=== PATIENT | male | born 1960 | race Caucasian/White ===

== ENCOUNTER 2018-08-25 09:59 | Outpatient (CLI) | payer BC, OTHER ==
--- NOTE | 2018-08-25 12:13 | CT ---
CT CHEST WITH IV CONTRAST: CT ABDOMEN AND PELVIS WITH IV CONTRAST: 08/25/2018 HISTORY: Colon mass. Rectal pain and constipation. COMPARISON: None available. FINDINGS: THORAX: There are emphysematous changes within the lungs bilaterally, greater in the upper lobes. T here is a tiny pleural-based nodular density at the posterolateral left lung base, measuring 4 mm. N o pulmonary nodule, mass, or pleural effusion is seen. There is minimal dependent atelectasis. There is a small, approximately 7 mm nodular density seen at the right aspect of the distal trachea, just above the level of the good. Prominent vascular calcifications are seen in the coronary arteries with minimal eccentric atheroscle rotic plaque in the descending thoracic aorta. The thoracic aorta is normal in caliber. There is no evidence of lymphadenopathy. ABDOMEN AND PELVIS: There is a lobulated, hypodense mass involving the cecum and proximal ascending colon. This mass involves the region of the ileocecal valve, and there is also eccentric thickening and involvement of the terminal ileum. There is no resultant small bowel obstruction. The greatest dimensions of the mass are 7.9 cm craniocaudal x 5.8 cm AP x 3.6 cm transverse. This mass likely ext ends beyond the lumen of the colon. A few adjacent tiny lymph nodes are seen in this region. There are a few lymph nodes seen anteriorly at the right aspect of the pelvis, measuring 1 cm and 1.1 cm in short axis dimension, respectively. There is also an eccentric mass seen at the right aspect of the rectum, with mass extending into the right perirectal fat and abutting the pelvic wall laterally, on the right. There are mild adjacent p erirectal inflammatory changes. A few small, nonenlarged lymph nodes are seen, although there is a l arger perirectal lymph node measuring approximately 1.1 cm in short axis dimension. There is colonic diverticulosis. The remainder of the colon prasad appear thickened, involving the tr ansverse and descending, as well as sigmoid colon, but this may be attributable to the incomplete dis tention of the colon. There are minimal presacral inflammatory changes seen posterior to the level of the rectal mass. The rectal mass grossly measures 4.8 cm craniocaudal x 3.9 cm AP x 3 cm transverse. There are several hypodense lesions seen within the left hepatic lobe, with at least six hypodense le sions seen, the largest in the posterior-inferior aspect of the lateral portion, medial segment, left hepatic lobe, measuring 2.7 cm. There is also a hypodense lesion near the region of the anterior se gment of the right hepatic lobe, measuring 1.8 cm in short axis dimension. These hypodense lesions a re worrisome for metastatic disease. A 4.4 cm fluid attenuation cystic lesion is seen in the mid portion, superior pole, right kidney, com patible with a cyst. The spleen, pancreas, bilateral adrenal glands, left kidney, and urinary bladder demonstrate a normal CT appearance. Atherosclerotic vascular calcifications and irregular atherosclerotic plaque is seen in the abdominal aorta and involving the iliac arteries. There is a sclerotic density seen at the posterior and superior aspects of the left acetabulum, likel y related to a small bone island. Similar findings are seen at anterior right acetabulum. No lytic osseous lesions are seen. IMPRESSION: 1. Two separate lobulated colonic masses, one seen involving the cecum and ascending colon, as well as involving the region of the ileocecal valve and the terminal ileum. This mass appears to extend b eyond the confines of the rectal wall. A second mass is seen within the right lateral aspect of the rectum, and this mass extends into the right perirectal fat and abuts the body wall. No well defined fat plane is seen laterally, on the right. 2. Mildly enlarged lymph nodes at the right anterolateral aspect of the pelvis, the largest measurin g 1.1 cm, with a few tiny perirectal lymph nodes seen and a larger lymph node seen in a presacral loc ation, measuring approximately 1.1 cm. 3. Several hypodense metastatic lesions within the liver. 4. Colonic diverticulosis. There is generalized thickening of the prasad of the colon, but this may be related to incomplete distention, as opposed to colitis. 5. Tiny, eccentric nodule, right lateral aspect of the trachea. Bronchoscopy is suggested for furth er evaluation. 6. Mild presacral inflammatory changes noted. 7. Right renal cyst. 8. Chronic obstructive pulmonary disease with subcentimeter, [id number], 4 mm, pleura l-based, nodular density, left lower lobe. CODE T POS: [facility]
[2018-08-25] MEDS ORDERED: ISOVUE-370 76%-LOCM 1 ML ONE (14:06)
== END 2018-08-25 10:00 | disposition home or self-care (01) ==
LOC: BICCT 09:59
PROVIDERS: ATTEND Internal Medicine Gastroenterology
DX: K63.89 Other specified diseases of intestine (principal); R59.0 Localized enlarged lymph nodes; K76.89 Other specified diseases of liver; K57.30 Diverticulosis of large intestine without perforation or abscess without bleeding; R91.1 Solitary pulmonary nodule; N28.1 Cyst of kidney, acquired; J44.9 Chronic obstructive pulmonary disease, unspecified; K62.89 Other specified diseases of anus and rectum; R91.8 Other nonspecific abnormal finding of lung field
CPT/HCPCS: 71260; 74177

== ENCOUNTER 2018-09-02 12:33 | Outpatient (CLI) | payer BC, OTHER ==
--- NOTE | 2018-09-03 09:12 | PET ---
PET CT: HISTORY: 57-year-old male with recently diagnosed colon cancer. Exam requested for initial staging. TECHNIQUE: PET scanning with CT attenuation correction was performed from the base of the brain through the prox imal thighs following the intravenous administration of 9.2 mCi [id number] in the right antecubital duy a. Imaging was performed after an uptake interval of 47 minutes. CORRELATION: CT chest, abdomen, and pelvis dated 08/25/18. FINDINGS: No montrell hypermetabolism is seen in the neck, chest, axilla, or abdomen. No hypermetabolic pulmonary nodules, adrenal, or skeletal lesions are seen. There are multiple hypermetabolic lesions in the liver with a maximum SUV of 8.6 in the right lobe of the liver (close to the dome) and 9.6 in the left lobe of the liver (posterior inferior aspect of th e lateral portion, medial segment, left hepatic lobe, measuring 2.7 cm). There is a hypermetabolic cecal mass with a SUV of 5.2. There is a hypermetabolic right rectal mass w ith a SUV of 10.7. This mass has a right perirectal extension with a SUV of 8.4. Hypermetabolic salbador cral lymph node has a SUV of 4.5. There is a small right perirectal lymph node with a SUV of 2.3. There is physiologic activity in the GI and tracts. A photopenic area in the right kidney correspo nds to a cyst. CT scan used for attenuation correction demonstrates no evidence of pleural effusions or ascites. IMPRESSION: 1. Two separate hypermetabolic colonic masses consistent with malignancy. 2. Metastatic disease involving the liver, presacral lymph node, and right perirectal lymph node. POS: [facility]
== END 2018-09-02 12:34 | disposition home or self-care (01) ==
LOC: PET 12:33
PROVIDERS: ATTEND Internal Medicine Hematology & Oncology
DX: C18.9 Malignant neoplasm of colon, unspecified (principal); C78.7 Secondary malignant neoplasm of liver and intrahepatic bile duct; C77.5 Secondary and unspecified malignant neoplasm of intrapelvic lymph nodes
CPT/HCPCS: 78815; A9552

== ENCOUNTER 2018-09-08 13:11 | Day surgery (SDC) | payer BC, OTHER ==
[2018-09-07 10:21] VITALS: BMI 19.5
[2018-09-08 13:56] LABS: Hemoglobin 16.2 g/dL (14.0-18.0); Mean Corpuscular HGB CONC 33.2 g/dL (32.0-36.0); Mean Corpuscular Hemoglobin 31.9 pg (27.0-31.0); Mean Platelet Volume 8.2 fL (7.4-10.4); Platelet Count 354 thou/uL (130-400); RBC Distribution Width 12.1 % (11.5-14.5); Red Blood Cell (RBC) Count 5.08 mill/uL (4.70-6.10); White Blood Cell (WBC) Count 11.6 thou/uL (4.8-10.8)
[2018-09-08 14:18] LABS: Anion Gap 15 mmol/L (10-20); BUN (Urea Nitrogen) 13 mg/dL (8.4-25.7); Calc. Creatinine Clearance 93 mL/min (70-130); Calcium 9.5 mg/dL (7.8-10.44); Carbon Dioxide 20 mmol/L (22-29); Chloride 107 mmol/L (98-107); Estimated GFR-MDRD Greater than 90; Glucose 97 mg/dL (70-105); Potassium 3.8 mmol/L (3.5-5.1); Sodium 138 mmol/L (136-145)
[2018-09-08] MEDS ORDERED: Midazolam HCl 2 mg/2 ml Vial ONE ×2 (14:42→16:16)
[2018-09-08] MEDS ORDERED: Ondansetron HCl/PF 4 MG/2 ML Vial ONE ×2 (14:43→17:35)
[2018-09-08] MEDS ORDERED: Fentanyl 100 MCG/2 ML VIAL ONE (16:16)
[2018-09-08] MEDS ORDERED: Bupivacaine/Epinephrine 0.25% 30 ML VIAL ONE (16:23)
[2018-09-08] MEDS ORDERED: Lidocaine 2% PF Inj 2 ML VIAL ONE ×2 (16:23→16:24)
[2018-09-08] MEDS ORDERED: CEFAZOLIN/Water 2 GM/20 ML SYRINGE ONE (16:33)
[2018-09-08] MEDS ORDERED: Dexamethasone 20 MG/5 ML VIAL ONE (17:35)
[2018-09-08] MEDS ORDERED: Lidocaine 1% PF 5 ML VIAL ONE (17:35)
[2018-09-08] MEDS ORDERED: Metoclopramide HCl 10 MG/2 ML VIAL ONE (17:35)
[2018-09-08] MEDS ORDERED: PROPOFOL 200 MG/20 ML VIAL ONE (17:35)
--- NOTE | 2018-09-08 19:47 | RAD ---
PORTABLE CHEST ONE VIEW: 09/08/18 HISTORY: Mediport placement. Colon cancer. FINDINGS/IMPRESSION: The heart size is normal. The aorta is tortuous. The lungs are well expanded without lobar consolidat ion, pneumothoraces or pleural effusions. There is a left internal jugular Port-A-Cath with tip in th e projection of the SVC. POS: [facility]
--- NOTE | 2018-09-08 20:58 | OP ---
DATE OF PROCEDURE: 09/08/2018 PREOPERATIVE DIAGNOSIS: Rectal cancer. POSTOPERATIVE DIAGNOSIS: Rectal cancer. PROCEDURE: Tunneled central line subcutaneous port (MediPort, CT injectable). SURGEON: Tenzin Patel M.D. ANESTHESIA: TIVA, local. COMPLICATIONS: None. SPECIMEN: None. FINDINGS: Tip of catheter is at the atriocaval junction. TECHNIQUE: The patient was taken to the operating room and placed supine on the table. After sedati on was obtained, bilateral neck and chest were prepped and draped in a sterile fashion. Local anesth etic infiltrated over the internal jugular vein on the left and introducer wire was placed through a Seldinger needle into the superior vena cava under fluoroscopic guidance. A small ayde was made ____ _ a separate 3 cm incision was made in the left upper chest and a subcutaneous pocket made at the low er incision. Tubing for the MediPort tunnel from the inferior to superior incision and Jimmy bright th was placed over the wire into the superior vena cava under fluoroscopic guidance. Dilator and wir e removed. The EndoCatch was inserted into the sheath and the sheath was peeled away. The tip of th e catheter was at atriocaval junction. MediPort tubing was cut to fit the MediPort at the lower inci fely, connected to the MediPort. The MediPort sewn to the chest wall in the subcutaneous pocket usin g Prolene. MediPort flushes and draws blood without difficulties, it was flushed with a heparin flus h. The wounds were irrigated and closed using 3-0 Vicryl, 4-0 Monocryl, and Dermabond. The patient was transferred to recovery in stable condition. All sponge counts, needle counts, lap counts were c orrect.
== END 2018-09-08 18:27 | disposition home or self-care (01) ==
LOC: SDC 13:11
PROVIDERS: ATTEND Surgery
PROC: 02HV33Z Insertion of Infusion Device into Superior Vena Cava, Percutaneous Approach (ICD-10-PCS; principal; 2018-09-08)
DX: C20 Malignant neoplasm of rectum (principal); N13.9 Obstructive and reflux uropathy, unspecified; E78.00 Pure hypercholesterolemia, unspecified; C78.7 Secondary malignant neoplasm of liver and intrahepatic bile duct; F17.200 Nicotine dependence, unspecified, uncomplicated; Z79.82 Long term (current) use of aspirin; Z79.899 Other long term (current) drug therapy; Z95.5 Presence of coronary angioplasty implant and graft
CPT/HCPCS: 36415; 71045; 80048; 85027; 93005; 93010; J1100; J1642; J2001; J2250; J2405; J2704; J2765; J3010

== ENCOUNTER 2018-11-05 07:56 | Outpatient (CLI) | payer BC, OTHER ==
--- NOTE | 2018-11-05 10:46 | CT ---
CT OF THE ABDOMEN AND PELVIS: DATE: 11/05/2018. COMPARISON: PET CT 09/02/2018; CT chest, abdomen, and pelvis 08/25/2018. HISTORY: Colon cancer. TECHNIQUE: Axial CT imaging obtained at 5 mm intervals from lung bases through pubic symphysis with intravenous and oral contrast. Coronal reformatted imaging obtained. FINDINGS: The imaged lung bases demonstrate tiny nodules within the right lower lobe, including a nodule on marlys ge 10 measuring 4 mm and a nodule on image 14 measuring 4 mm. These nodules are not definitely seen on prior imaging and thus, may represent new metastatic disease. However, there small size limits de tailed assessment. There is no free intraperitoneal air. There are multiple hypodense rim enhancing lesions within the left and right lobes of the liver, cons istent with hepatic metastatic disease. Metastatic lesions within the liver have increased in size a nd number when compared to the 08/25/2018 CT. Limited comparison on recent PET CT also demonstrates l esions have increased in number and size. There are at least 11-123 lesions within the left lobe of the liver. There is a lesion within the liver just anterior and medial to the gallbladder. On today 's examination, this lesion measures 4.4 x 3.1 cm. It measured approximately 2.7 x 2.1 cm on the 08/01 exam and measured approximately 3.2 x 2.4 cm on the recent PET scan. There is a lesion within the right lobe near the dome measuring 3.7 x 3.3 cm, increased from PET CT at which time it measured approximately 2.5 x 1.8 cm. This lesion measured approximately 1.8 x 1.7 cm on the 08/25/2018 exam. There are at least 8-10 lesions within the right lobe of the liver, many of which are new when sandra red to 08/25/2018 as well as recent PET CT. The pancreas, spleen, adrenal glands, gallbladder, and kidneys appear stable. There is a cyst within the right kidney measuring up to 3.7 cm. There is an eccentric mass associated with the distal colon/rectum to the right of midline. This mas s extends into the perirectal fat and is difficult to accurately measure. Estimated measurement of t his colon mass lesion is 3.0 x 2.7 x 3.3 cm, probably decreased in size when compared to the 9/26/201 8 exam at which time it measured in the 3.9 x 3.0 x 4.8 cm range. There is a mass in the presacral f at superior to this lesion located just to the right of midline measuring 1.8 cm in transverse dimens ion, enlarged from 1.1 cm on the 08/25/2018 examination and grossly unchanged when compared to the rec ent PET CT. Additional smaller presacral mass just superior to the above-described colonic mass is s een on image 82 and measures 9 mm, increased from 6 mm on 08/25/2018 and stable when compared to recen t PET CT. No evidence for bowel obstruction. There is an irregular focal area of mass-like wall thickening of the proximal ascending colon just di stal to the ileocecal valve, best seen on coronal image 24 measuring at least 4.2 x 2.4 x 2.7 cm. An ill-defined mass is seen in this region on the PET scan measuring up to approximately 3.4 cm. This mass has decreased in size when compared to the 08/25/2018 exam at which time it measured at least 5.8 x 3.7 cm. The vascular structures of the abdomen and pelvis appear patent. There is multifocal partially calci fied atherosclerotic plaque within the abdominal aorta extending into the arterial structures of the pelvis. No inguinal lymphadenopathy is noted on either side. No retroperitoneal lymphadenopathy is seen. No discrete lytic or blastic bone lesion is evident on this exam. IMPRESSION: 1. Two colonic mass lesions are noted, one associated with the right aspect of the rectum and one as sociated with the medial aspect of the proximal ascending colon, consistent with malignancy. Both of these lesions have decreased in size when compared to the 08/25/2018 examination. 2. Evidence of hepatic metastatic disease, progressed since the 09/02/[address] and the 08/25/2018 C T examination. 3. Evidence of metastatic disease in the presacral fat and perirectal fat as detailed above. 4. Two tiny pulmonary nodules are noted in the right lower lobe. These are not discretely visualize d on the prior examination and thus may represent early new pulmonary metastatic disease. CODE T
[2018-11-05] MEDS ORDERED: ISOVUE-370 76%-LOCM 1 ML ONE (13:28)
== END 2018-11-05 07:57 | disposition home or self-care (01) ==
LOC: BICCT 07:56
PROVIDERS: ATTEND Internal Medicine Hematology & Oncology
DX: C18.9 Malignant neoplasm of colon, unspecified (principal); R91.8 Other nonspecific abnormal finding of lung field
CPT/HCPCS: 74177

== ENCOUNTER 2018-11-18 08:23 | Day surgery (SDC) | payer BC, OTHER ==
[2018-11-17 08:19] VITALS: BMI 19.3
[2018-11-18 08:55] LABS: INR-International Normal Ratio 0.9; PTT 34.3 SEC (22.9-36.1); Prothrombin Time 12.4 SEC (12.0-14.7)
[2018-11-18 10:59] VITALS: BP 123/82; TEMP 98
--- NOTE | 2018-11-18 13:10 | ULT ---
ULTRASOUND GUIDED LIVER BIOPSY: HISTORY: Liver mass. COMPARISON: CT abdomen and pelvis from 11/05/2018. FINDINGS: The patient was brought to the ultrasound suite. All questions were answered. The patient's abdomen was prepped and draped in the normal sterile fashion. Informed consent was obt ained. A time out was performed. Versed 25 mg was administered intravenously by the supervising nurse. Lidocaine 5 mL was instilled into the superficial and deep soft tissues. A small dermatotomy was mad e. Using an 18 gauge BioPince needle, a total of two 11 mm cores were obtained to the mass, through the left lobe of the liver. The patient tolerated the procedure well, without complications. IMPRESSION: Technically successful ultrasound-guided liver mass biopsy. TOTAL SEDATION TIME: 30 minutes. POS: [facility]
== END 2018-11-18 12:10 | disposition home or self-care (01) ==
LOC: CT 08:23
PROVIDERS: ATTEND Internal Medicine Hematology & Oncology
PROC: 0FB23ZX Excision of Left Lobe Liver, Percutaneous Approach, Diagnostic (ICD-10-PCS; principal; 2018-11-18)
DX: C78.7 Secondary malignant neoplasm of liver and intrahepatic bile duct (principal); C18.8 Malignant neoplasm of overlapping sites of colon; I25.10 Atherosclerotic heart disease of native coronary artery without angina pectoris; E78.00 Pure hypercholesterolemia, unspecified; F17.210 Nicotine dependence, cigarettes, uncomplicated; Z79.899 Other long term (current) drug therapy; Z95.5 Presence of coronary angioplasty implant and graft
CPT/HCPCS: 36415; 47000; 76942; 85610; 85730

== ENCOUNTER 2018-12-20 00:58 | Inpatient (IN) | payer BC, OTHER ==
[2018-12-20] MEDS ORDERED: Lorazepam 2 MG/ML VIAL ONE (01:14)
[2018-12-20 01:25] LABS: #Basophils 0.1 thou/uL (0.0-0.2); #Eosinphils 0.2 thou/uL (0.0-0.7); #Lymphocytes 1.4 thou/uL (1.20-3.40); #Monocytes 1.7 thou/uL (0.11-0.59); #Neutrophils 10.7 thou/uL (1.40-6.50); %Basophils 0.5 % (0.0-1.0); %Eosinophils 1.6 % (0.0-10.0); %Lymphocytes 10.1 % (21.0-51.0); %Neutrophils 75.8 % (42.0-75.0); Hemoglobin 13.7 g/dL (14.0-18.0); Mean Corpuscular HGB CONC 33.5 g/dL (32.0-36.0); Mean Corpuscular Hemoglobin 33.5 pg (27.0-31.0); Mean Platelet Volume 7.1 fL (7.4-10.4); Platelet Count 510 thou/uL (130-400); RBC Distribution Width 16.6 % (11.5-14.5); Red Blood Cell (RBC) Count 4.08 mill/uL (4.70-6.10); White Blood Cell (WBC) Count 14.1 thou/uL (4.8-10.8)
[2018-12-20 01:52] LABS: ALT (SGPT) 10 U/L (8-55); AST (SGOT) 23 U/L (5-34); Alkaline Phosphatase 224 U/L (40-150); Anion Gap 23 mmol/L (10-20); BUN (Urea Nitrogen) 13 mg/dL (8.4-25.7); Bilirubin, Total 0.6 mg/dL (0.2-1.2); Calc. Creatinine Clearance 0 mL/min (70-130); Calcium 10.2 mg/dL (7.8-10.44); Carbon Dioxide 14 mmol/L (22-29); Chloride 103 mmol/L (98-107); Estimated GFR-MDRD Greater than 90; Glucose 108 mg/dL (70-105); Potassium 4.6 mmol/L (3.5-5.1); Sodium 135 mmol/L (136-145)
[2018-12-20 04:10] LABS: Bilirubin Negative (Negative); Blood, Urine Negative (Negative); Clarity CLEAR (Clear); Glucose, Urine (Dipstick) Negative (Negative); Leukocyte Negative (Negative); Nitrite Negative (Negative); Protein, Urine (Dipstick) Negative (Neg-Trace); Specific Gravity, Urine 1.015 (1.002-1.036); Urobilinogen 0.2 mg/dL (0.2-1.0)
[2018-12-20] MEDS ORDERED: Piperacillin/Tazobactam 4.5 GM VIAL ONE (04:29)
[2018-12-20 05:40] LABS: Lactic Acid 0.8 mmol/L (0.5-2.2)
[2018-12-20] MEDS ORDERED: Loratadine 10 MG TAB PO PRN (07:24)
[2018-12-20] MEDS ORDERED: Eucerin (Mineral Oil/Petrolatum,White) 30 gm Jar TOP PRN (07:24)
[2018-12-20] MEDS ORDERED: hydrALAZINE 20 MG/ML VIAL SLOW IVP PRN (07:24)
[2018-12-20] MEDS ORDERED: Senokot S 8.6-50 MG TAB PO PRN (07:24)
[2018-12-20] MEDS ORDERED: Acetaminophen 325 MG TAB PO PRN (07:24)
[2018-12-20] MEDS ORDERED: Zolpidem Tartrate 5 MG TAB PO PRN (07:24)
[2018-12-20] MEDS ORDERED: Sodium Chloride 0.65% Nasal 44 ML BOT EA NARE PRN (07:24)
[2018-12-20] MEDS ORDERED: Diabetic Tussin 200 MG/10 ML UDCUP PO PRN (07:24)
[2018-12-20] MEDS ORDERED: Cepastat Lozenges 1 LOZ PO PRN (07:24)
[2018-12-20] MEDS ORDERED: Calcium Carbonate 500 MG ChewTAB PO PRN (07:24)
[2018-12-20] MEDS ORDERED: Artificial Tears 18 DROP/0.9 ML EA EYE PRN (07:24)
[2018-12-20] MEDS ORDERED: Ondansetron PF 4 MG/2 ML Vial IVP PRN (07:24)
[2018-12-20] MEDS ORDERED: Ondansetron ODT 4 MG TAB PO PRN (07:24)
[2018-12-20] MEDS ORDERED: HYDROcodone/Acetaminophen 5/325 mg Tablet PO PRN (07:24)
[2018-12-20] MEDS ORDERED: Bisacodyl 5 MG TAB PO PRN (07:24)
[2018-12-20] MEDS ORDERED: Loperamide HCl 2 MG CAP PO PRN (07:24)
[2018-12-20] MEDS ORDERED: Bisacodyl 10 MG SUPP PR PRN (07:24)
[2018-12-20] MEDS ORDERED: Sodium Chloride 0.9% 1,000 ML IV SCH (07:30)
--- NOTE | 2018-12-20 08:11 | CT ---
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 PT reports he was also covered in sweat when he awoke. Reports similar episodes in the past without cp or jerking. Dr. Abraham is the pt's oncologist. The PT was on chemo, last trx 1 month ago, and then radiation, last trx a couple of weeks ago. Social HX: Smoker. TECHNIQUE: Axial computed tomographic angiography images of the chest with intravenous contrast using CT angiogr aphy protocol. MIP reconstructed images were created and reviewed. COMPARISON: No relevant prior studies available. FINDINGS: Tubes, catheters and devices: There is a left-sided portacatheter. There is a 12 mm LEFT upper lobe p ulmonary nodule. Additional smaller nodules are seen throughout the lungs suggestive of pulmonary met astases. Pulmonary arteries: There is no evidence of peripheral filling defects within the pulmonary arterial circulation to suggest pulmonary embolism. Aorta: Normal. No aortic aneurysm. No aortic dissection. Lungs: There is subpleural atelectasis of the dependent portions of the lungs. Mild centrilobular emp hysematous changes are present. Pleural space: Normal. No pneumothorax. No pleural effusion. Heart: Normal. No cardiomegaly. No pericardial effusion. Liver: There are diffuse liver metastases. Lymph nodes: Unremarkable. No enlarged lymph nodes. Bones/joints: Unremarkable. No acute fracture. Soft tissues: Unremarkable. IMPRESSION: 1. There is no CT evidence of acute pulmonary embolism. 2. Diffuse liver and pulmonary metastases. Thank you for allowing us to participate in the care of your patient. Dictated and Authenticated by: Arsh Jiménez MD 12/20/2018 3:17 AM Central Time ([place] & [place]) FINAL REPORT CT ANGIOGRAM OF THE CHEST: HISTORY: Colorectal cancer. Chest pain. COMPARISON: 08/25/2018. TECHNIQUE: CT angiogram of the chest is performed in the axial plane. Three-dimensional reformatted images are submitted for interpretation. FINDINGS: This report is in agreement with the preliminary report by [facility]. When compared to the previous examin ation, there is development of multiple lung parenchymal nodules. The largest nodule is in the lingu la measuring 1.2 x 0.9 cm. Heterogeneity of the liver compatible with multifocal hepatic metastases. POS: [facility]
--- NOTE | 2018-12-20 08:17 | RAD ---
PORTABLE CHEST ONE VIEW: Date: 12-20-18 Time: 12:18 a.m. History: Dyspnea. FINDINGS: Comparison made with 09-08-18. Left sided port-a-cath remains in place. The heart size is normal. The lungs are expanded without foc al areas of consolidation, pneumothoraces or pleural effusions. IMPRESSION: No radiographic evidence of acute cardiopulmonary process. POS: [facility]
[2018-12-20] MEDS ORDERED: Famotidine 20 MG TAB PO SCH (09:00)
[2018-12-20] MEDS ORDERED: Enoxaparin Sodium 40 MG/0.4 ML SYRINGE SC SCH (09:00)
[2018-12-20] MEDS ORDERED: Tamsulosin HCl 0.4 MG CAP PO SCH (09:00)
[2018-12-20] MEDS ORDERED: Saccharomyces boulardii 250 MG CAP PO SCH (09:00)
[2018-12-20] MEDS ORDERED: Polyethylene Glycol 3350 17 GM Packet PO SCH (09:00)
--- NOTE | 2018-12-20 11:05 | HP ---
PRIMARY CARE PHYSICIAN: Dr. Tomer Hedrick. REASON FOR ADMISSION: Sepsis. HISTORY OF PRESENT ILLNESS: A 58-year-old male, who has metastatic colon and rectal cancer metastasized to liver and suspected lung, who presented to emergency room with complaint of chills, rigor, which was started last night. The patient was also feeling at the same time shortness of breath and vague discomfort in his chest. The patient was feeling extremely weak. He was feeling extremely cold and that is why the patient's family member brought him to emergency room. In the emergency room, the patient was hypertensive, tachycardic, tachypneic, and routine blood test showed leukocytosis with left shift. He also had elevated D-dimer that is why CT angio was done, which was negative for pulmonary embolism. Initially, lactic acid was elevated as well. The patient was meeting sepsis criteria. He was given empirically vancomycin and Zosyn and IV fluid. Subsequently, we decided to keep this patient in the hospital for further evaluation and treatment. This patient denies any UTI symptoms, but he does report intermittent urinary retention. He is taking Flomax for his chronic prostate problem. He does have obstructive urinary symptoms. He denies any pleuritic chest pain, cough. He does report anorexia and loss of weight secondary to his cancer. This patient has underlying history of colorectal cancer several months ago. After that, the patient was treated with chemotherapy, which was not helping and that is why the patient was treated with radiation therapy. The patient has finished radiation therapy couple of weeks ago. He denies any melena or hematochezia, but he does have problem with constipation. The patient reports that recently his fentanyl patch increased from 50 to 100 mcg and he is not tolerating that patch. REVIEW OF SYSTEMS: CONSTITUTIONAL: Negative for weight loss or gain, ability to conduct usual activities. SKIN: Negative for rash, itching. EYES: Negative for double vision, pain. ENT/MOUTH: Negative for nose bleeding, neck stiffness, pain, tenderness. CARDIOVASCULAR: Negative for palpitations, dyspnea on exertion, orthopnea. RESPIRATORY: Negative for shortness of breath, wheezing, cough, hemoptysis, fever or night sweats. GASTROINTESTINAL: Negative for poor appetite, abdominal pain, heartburn, nausea, vomiting, constipation, or diarrhea. GENITOURINARY: Negative for urgency, frequency, dysuria, nocturia. MUSCULOSKELETAL: Negative for pain, swelling. NEUROLOGIC/PSYCHIATRIC: Negative for anxiety, depression. ALLERGY/IMMUNOLOGIC: Negative for skin rash, bleeding tendency. Please see my HPI for pertinent positives and negatives. All other review of systems reviewed and negative except as mentioned in HPI. PAST MEDICAL HISTORY: Metastatic colorectal cancer, finished chemo and radiation therapy; benign enlargement of prostate; chronic pain disorder; failure to thrive in adult; benign enlargement of prostate; and chronic constipation. PAST SURGICAL HISTORY: MediPort placement. PAST PSYCHIATRIC HISTORY: Reviewed and negative. SOCIAL HISTORY: The patient is . He is smoking about half pack per day. He denies any alcohol abuse. He denies any other illicit drug abuse. FAMILY HISTORY: No family history of premature coronary artery disease, stroke, or cancer. ALLERGIES: NO KNOWN DRUG ALLERGIES. CURRENT HOME MEDICATIONS: 1. [place] 10 one or two tablets q.6 hourly p.r.n. 2. Flomax 0.4 mg daily. 3. Fentanyl patch every 72 hours. 4. Megace one tablet twice daily. 5. MiraLAX 17 g daily. 6. Colace 100 mg daily. 7. Senna one tablet as needed basis. EMERGENCY ROOM COURSE: The patient has received vancomycin, Zosyn, Ativan, and IV fluids. PHYSICAL EXAMINATION: VITAL SIGNS: On arrival, blood pressure 156/115, pulse 116, respiratory rate 36, temperature 97.6, saturation 99%, and weight 59 kg. GENERAL: The patient is currently chronically ill, relatively hypotensive. HEENT: Head; normocephalic and atraumatic. Eyes; pupils are round and reactive to light. Extraocular muscles intact. ENT, oropharynx within normal limits. Moist mucous membranes. No oral lesion. No pharyngeal erythema. No exudate. NECK: Supple. No JVD. No thyromegaly. No carotid bruits. LUNGS: Coarse breath sounds, but no wheeze. No rhonchi. No accessory muscles of respiration in use. CARDIAC: S1 and S2. Slightly tachycardia. No murmur elicited. No gallop. No rub. ABDOMEN: Soft. Bowel sounds present. Nontender. Nondistended. No organomegaly. No mass. No suprapubic tenderness. BACK: Unremarkable. No CVA tenderness. EXTREMITIES: Upper extremities; passive movement of all joints is normal. Lower extremities, no edema. Good distal pulsation. SKIN: No skin rash. HEMATOLOGIC: No lymphadenopathy. NEUROLOGIC: Nonfocal examination. SIGNIFICANT LABORATORY DATA: EKG showing sinus tachycardia, nonspecific ST-T changes, left posterior fascicular block. CT angio is negative for pulmonary embolism. Chest x-ray negative for any acute infiltration. CBC; WBC 14.1, hemoglobin 13.7, MCV 100, platelets 510. D-dimer 1.71. BMP; sodium 135, potassium 4.6, chloride 103, carbon dioxide 14, anion gap 23, BUN 13, creatinine 0.77, glucose 108, and calcium 10.2. LFT; AST 23, ALT 10, alkaline phosphatase 224, albumin 4.0. BNP 14.1. Cardiac enzyme negative. Lactic acid 3.7. Urinalysis normal. Influenza A and B negative. ASSESSMENT AND PLAN: 1. Rigors without fever, worrisome for bacteremia given immunocompromised state along with sepsis criteria with leukocytosis with left shift, lactic acidosis, tachycardia, tachypnea on admission. Source of infection is not obvious at this point. The patient has received empiric antibiotic therapy with vancomycin and Zosyn, which we will continue while in hospital. We will also continue IV fluids. We will follow up on blood and urine culture results. 2. Sepsis. The patient meets sepsis criteria as mentioned above. The patient is already on broad spectrum antibiotic therapy. We will follow up on culture result and narrow down antibiotic spectrum. At this point, source of infection is not clear. 3. Benign enlargement of prostate with obstructive symptoms. We will continue Flomax 0.4 mg p.o. daily. His urinalysis is normal. 4. Chronic constipation. We will treat constipation with symptomatic medication while in hospital along with MiraLAX daily. 5. Metastatic colorectal cancer with metastasis to liver and possibly lung based on recent imaging. The patient has not responded to chemotherapy in recent past as well as he finished radiation therapy. We will consult Oncology on-call for their opinion. 6. Macrocytic anemia. We will start folic acid, vitamin B12 therapy. 7. Lactic acidosis, resolved secondary to sepsis likely. 8. Elevated D-dimer, but negative CT angio for pulmonary embolism. We will continue with deep venous thrombosis prophylaxis with Lovenox. 9. Tobacco abuse disorder. Smoking cessation counseling given. Healthy lifestyle measure discussed with the patient. 10. Chronic pain disorder. We will continue with the patient's home medication after verification. Deep venous thrombosis prophylaxis, Lovenox 40 mg subcu daily. Gastrointestinal prophylaxis, Pepcid 20 mg p.o. b.i.d. CODE STATUS: The patient is full code. The patient's is surrogate decision maker. DISPOSITION PLAN: Based on clinical course, we are expecting the patient's stay in hospital more than 2 midnights. Plan of care discussed with the patient in detail. Job ID: [id number]
--- NOTE | 2018-12-20 11:40 | DIS ---
DATE OF ADMISSION: 12/20/2018 DATE OF DISCHARGE: 12/20/2018 DISCHARGE DISPOSITION: Against medical advice. PRIMARY DISCHARGE DIAGNOSES: 1. Chills with rigor. 2. Sepsis. 3. Lactic acidosis. SECONDARY DISCHARGE DIAGNOSES: 1. Metastatic colon cancer. 2. Macrocytic anemia. PRIMARY PROCEDURE/OPERATION: None. RADIOLOGICAL INVESTIGATION: CT angio and chest x-ray. SIGNIFICANT LABORATORY DATA: Please see my HPI for more details. WBC 14.1. D-dimer 1.71. Creatinine 0.77. DISCHARGE MEDICATIONS: The patient is discharged against medical advice from emergency room. He will continue his own medication. CONTRAINDICATION: None. CODE STATUS: Full code. INPATIENT SUPERVISOR METAL PLACING: None. ALLERGIES: NO KNOWN DRUG ALLERGIES. DISCHARGE PLAN: The patient left against medical advice from ER. HOSPITAL COURSE: A 58-year-old male, who was admitted by me earlier today. Please see my HPI for more details. This patient has rigors and chills at home, and we were worried about sepsis. He has leukocytosis and sepsis criteria on admission. We gave him empiric antibiotic therapy. We told him to stay in hospital for couple of days until we rule out sepsis, but he did not want to stay in hospital and he left against medical advice. Job ID: [id number]
[2018-12-20] MEDS ORDERED: Piperacillin/Tazobactam 4.5 GM in Sodium Chloride 0.9% 100 ML IVPB SCH (12:00)
[2018-12-20] MEDS ORDERED: ISOVUE-370 76%-LOCM 1 ML ONE (16:51)
== END 2018-12-20 11:18 | disposition left against medical advice (07) | DRG 872 ==
LOC: ERS 00:58 → ERHOLD 04:21
PROVIDERS: ADMIT Hospitalist; ATTEND Hospitalist
DX: A41.9 Sepsis, unspecified organism (principal); C19 Malignant neoplasm of rectosigmoid junction; C78.7 Secondary malignant neoplasm of liver and intrahepatic bile duct; E87.2 Acidosis; Z53.21 Procedure and treatment not carried out due to patient leaving prior to being seen by health care provider; N40.1 Benign prostatic hyperplasia with lower urinary tract symptoms; R33.8 Other retention of urine; K59.09 Other constipation; D53.9 Nutritional anemia, unspecified; G89.29 Other chronic pain; F17.210 Nicotine dependence, cigarettes, uncomplicated; Z79.891 Long term (current) use of opiate analgesic
CPT/HCPCS: 36415; 71045; 71275; 80053; 81003; 83605; 83880; 84484; 85025; 85379; 87040; 87086; 87804; 93005; J1650; J2060; J2543; J3370; J7050

== ENCOUNTER 2018-12-20 22:24 | Inpatient (IN) | payer BC, OTHER ==
[2018-12-20] MEDS ORDERED: Piperacillin/Tazobactam 3.375 GM VIAL ONE (23:34)
[2018-12-20 23:38] LABS: #Basophils 0.1 thou/uL (0.0-0.2); #Eosinphils 0.1 thou/uL (0.0-0.7); #Lymphocytes 1.1 thou/uL (1.20-3.40); #Monocytes 1.4 thou/uL (0.11-0.59); #Neutrophils 9.1 thou/uL (1.40-6.50); %Basophils 0.6 % (0.0-1.0); %Eosinophils 0.8 % (0.0-10.0); %Lymphocytes 9.6 % (21.0-51.0); %Monocytes 11.9 % (0.0-10.0); %Neutrophils 77.1 % (42.0-75.0); Hemoglobin 12.2 g/dL (14.0-18.0); Mean Corpuscular HGB CONC 33.5 g/dL (32.0-36.0); Mean Corpuscular Hemoglobin 33.3 pg (27.0-31.0); Mean Corpuscular Volume 99.4 fL (78.0-98.0); Platelet Count 474 thou/uL (130-400); RBC Distribution Width 16.4 % (11.5-14.5); Red Blood Cell (RBC) Count 3.67 mill/uL (4.70-6.10); White Blood Cell (WBC) Count 11.8 thou/uL (4.8-10.8)
[2018-12-20 23:58] LABS: ALT (SGPT) 10 U/L (8-55); AST (SGOT) 23 U/L (5-34); Albumin 3.8 g/dL (3.5-5.0); Alkaline Phosphatase 227 U/L (40-150); Anion Gap 17 mmol/L (10-20); BUN (Urea Nitrogen) 12 mg/dL (8.4-25.7); Bilirubin, Total 0.4 mg/dL (0.2-1.2); Calc. Creatinine Clearance 0 mL/min (70-130); Calcium 9.8 mg/dL (7.8-10.44); Carbon Dioxide 18 mmol/L (22-29); Chloride 104 mmol/L (98-107); Estimated GFR-MDRD Greater than 90; Globulin 3.4 g/dL (2.4-3.5); Glucose 95 mg/dL (70-105); Potassium 4.3 mmol/L (3.5-5.1); Protein, Total 7.2 g/dL (6.0-8.3); Sodium 135 mmol/L (136-145)
[2018-12-21] MEDS ORDERED: Acetaminophen 325 MG TAB PO PRN (00:42)
[2018-12-21] MEDS ORDERED: Ondansetron PF 4 MG/2 ML Vial IVP PRN (00:42)
[2018-12-21] MEDS ORDERED: fentaNYL 50 mcg/hour Patch TD SCH (00:45)
[2018-12-21 00:59] VITALS: BMI 17.4
[2018-12-21] MEDS ORDERED: ALPRAZolam 0.25 MG TAB PO PRN ×2 (02:21)
[2018-12-21] MEDS: Sodium Chloride 0.9% 1,000 ML IV SCH ×2 (02:31→15:50)
--- NOTE | 2018-12-21 03:04 | HP ---
PRIMARY CARE DOCTOR: Dr. Marquez Jeff. CODE STATUS: Full code. TIME OF EVALUATION: 12:20 a.m. CHIEF COMPLAINT: Shaking. HISTORY OF PRESENT ILLNESS: This is a 58-year-old male patient with past medical history of colorectal cancer. The patient has received chemoradiation, followed by Dr. Abraham. He came to the hospital after having uncontrollable shaking associated with chills, no clear triggers, no alleviating factors, symptom has been present for the past three days and has been gradually worsening. As of note, the patient was seen in the hospital and signed AMA, today has called PCP and decided to return. The patient has been started on broad-spectrum antibiotics given the history of immunosuppression and cancer. We will treat empirically for now, send cultures, we will adjust treatment depending on further workup results. REVIEW OF SYSTEMS: CONSTITUTIONAL: The patient has subjective fever, chills, generalized weakness. RESPIRATORY: No cough, sputum production, shortness of breath. CARDIOVASCULAR: No chest pain or palpitation. GASTROINTESTINAL: No nausea, vomiting, diarrhea. The patient has difficulty passing his stool, constipation. 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 GENITOURINARY: No burning on urination. EXTREMITIES: No leg swelling. All other systems were reviewed and negative except for the findings mentioned above. PAST MEDICAL HISTORY: As mentioned in the HPI. PAST SURGICAL HISTORY: Two cardiac stents, MediPort. PSYCH HISTORY: No previous psych history. SOCIAL HISTORY: No alcohol, no drugs. The patient is an everyday smoker. Lives at home with family. FAMILY HISTORY: Reviewed and noncontributory to current presentation. ALLERGIES: NO KNOWN DRUG ALLERGIES REPORTED. MEDICATIONS: [place], tamsulosin, fentanyl, megestrol, MiraLAX, docusate-senna. PHYSICAL EXAMINATION: VITAL SIGNS: On presentation, blood pressure 150/75 with heart rate 117, respiratory rate was 18, temperature 98.8, oxygen saturation 98 on room air. GENERAL APPEARANCE: The patient is alert, oriented, has an ill appearance. HEAD, EYES: Normal conjunctivae. Moist oral mucosa. Anicteric. No JVD. RESPIRATORY: Bilateral air entry. No rales, no wheezes. Symmetric expansion. CARDIOVASCULAR: The patient is tachycardic. Regular rhythm. No murmurs, no gallops. No edema. ABDOMEN: Soft, normal bowel sounds. MUSCULOSKELETAL: Baseline range of motion and strength. No tenderness. SKIN: Warm, intact. No pallor. No rash. No redness. Peripheral pulses are present. Capillary refill seems to intact. NEURO: No evidence of any new focal weakness. Baseline speech. Cranial nerves seems to be intact. PSYCH: The patient is in good mood. No anxiety. Optimal judgment. DIAGNOSTIC DATA: Chest CTA was done yesterday and that was reported as there is no CTA evidence of acute pulmonary embolism, diffuse liver and pulmonary metastasis. LABORATORY DATA: Labs reviewed. The patient has a white count 11.8, hemoglobin 12.2, MCV 99.4, platelet count 424. Chemistry; sodium 135, potassium 4.3, chloride 104, carbon dioxide 18, anion gap 17, BUN 12, creatinine 0.74, GFR greater than 90, glucose 95. Lactic acid 1.4. LFTs were normal. ASSESSMENT/PLAN: The patient will be placed in the hospital with following medical problems: 1. Metastatic stage IV, seems to be complicated with infection. The patient has been started on broad-spectrum antibiotics given the history of cancer and immunosuppression, and we will adjust treatment depending on cultures and sensitivity. 2. Chronic macrocytic anemia, appears likely secondary to underlying cancer. Can be treated as outpatient, no need for any acute intervention. 3. History of coronary artery disease. This problem is chronic, seems to be stable, reconcile home medications, we will adjust treatment as needed. 4. Deep venous thrombosis prophylaxis. Job ID: [id number]
[2018-12-21 05:24] LABS: #Eosinphils 0.2 thou/uL (0.0-0.7); #Lymphocytes 0.9 thou/uL (1.20-3.40); #Monocytes 1.1 thou/uL (0.11-0.59); #Neutrophils 6.9 thou/uL (1.40-6.50); %Basophils 0.5 % (0.0-1.0); %Eosinophils 1.9 % (0.0-10.0); %Lymphocytes 10.1 % (21.0-51.0); %Monocytes 12.3 % (0.0-10.0); %Neutrophils 75.2 % (42.0-75.0); Hemoglobin 11.3 g/dL (14.0-18.0); Mean Corpuscular HGB CONC 33.4 g/dL (32.0-36.0); Mean Corpuscular Hemoglobin 33.2 pg (27.0-31.0); Mean Corpuscular Volume 99.6 fL (78.0-98.0); Mean Platelet Volume 7.2 fL (7.4-10.4); Platelet Count 413 thou/uL (130-400); RBC Distribution Width 16.3 % (11.5-14.5); Red Blood Cell (RBC) Count 3.39 mill/uL (4.70-6.10); White Blood Cell (WBC) Count 9.2 thou/uL (4.8-10.8)
[2018-12-21] MEDS: Piperacillin/Tazobactam 3.375 GM in Sodium Chloride 0.9% 100 ML IVPB SCH ×3 (05:38→18:23)
[2018-12-21 05:43] LABS: Anion Gap 14 mmol/L (10-20); BUN (Urea Nitrogen) 11 mg/dL (8.4-25.7); Calc. Creatinine Clearance 99 mL/min (70-130); Calcium 9.4 mg/dL (7.8-10.44); Carbon Dioxide 19 mmol/L (22-29); Chloride 106 mmol/L (98-107); Estimated GFR-MDRD Greater than 90; Glucose 83 mg/dL (70-105); Potassium 4.2 mmol/L (3.5-5.1); Sodium 135 mmol/L (136-145)
[2018-12-21] MEDS: Docusate 100 MG CAP PO SCH ×2 (08:46→21:25)
[2018-12-21] MEDS: HYDROcodone/Acetaminophen 10/325 mg Tablet PO SCH ×4 (08:49→21:25)
[2018-12-21] MEDS: Megestrol Acetate 800 MG/20 ML UDCUP PO SCH ×2 (08:50→21:27)
[2018-12-21] MEDS: Enoxaparin Sodium 40 MG/0.4 ML SYRINGE SC SCH (08:51)
[2018-12-21] MEDS ORDERED: Senokot 8.6 MG TAB PO SCH (09:00)
[2018-12-21] MEDS: Vancomycin HCl 1 GM in Premix Bag 1 BAG IVPB SCH (12:14)
[2018-12-21] MEDS ORDERED: HYDROcodone/Acetaminophen 10/325 mg Tablet PO PRN (14:50)
--- NOTE | 2018-12-21 14:55 | PDOC.PN ---
- Subjective Encounter Start Date: 12/21/18 Encounter Start Time: 14:53 Subjective: feels a little better but still very weak.back pain - Objective Resuscitation Status - Order Detail: 12/21/18 00:42 Resuscitation Status Routine Resuscitation Status: FULL: Full Resuscitation MAR Reviewed: Yes Vital Signs & Weight: Vital Signs (12 hours) Temp Pulse Resp BP BP Pulse Ox 12/21/18 12:00 97.9 F 73 20 131/77 97 12/21/18 09:31 69 116/61 12/21/18 08:00 98.1 F 61 18 84/52 L 94 L 12/21/18 04:10 98.4 F 66 18 129/69 100 Weight Admit Weight 129 lb Weight 129 lb I&O: 12/20/18 12/21/18 12/22/18 06:59 06:59 06:59 Intake Total 800 Output Total 600 Balance 200 Result Diagrams: 12/21/18 04:47 12/21/18 04:47 Additional Labs: Microbiology 12/20/18 03:45 Nasal swab Influenza Types A,B Direct EIA - Final 12/20/18 03:46 Venous blood - Left Hand Blood Culture - Preliminary Specimen has been received and culture in progress. No Growth to date. 12/20/18 03:45 Urine voided Urine Culture - Preliminary NO GROWTH AT 12 HOURS 12/20/18 01:27 Venous blood - Left Arm Blood Culture - Preliminary Specimen has been received and culture in progress. No Growth to date. Laboratory Tests 12/20/18 12/20/18 12/21/18 01:11 23:18 04:47 WBC 14.1 H 11.8 H 9.2 Phys Exam - Physical Examination weak and pale,cachectic HEENT: PERRLA, moist MMs, sclera anicteric, oral pharynx no lesions Neck: no nodes, no JVD, supple, full ROM Respiratory: no wheezing, no rales, clear to auscultation bilateral Cardiovascular: RRR, no significant murmur Gastrointestinal: soft, non-tender, no distention, positive bowel sounds Musculoskeletal: no edema, pulses present Neurological: non-focal, normal sensation, moves all 4 limbs Psychiatric: normal affect, A&O x 3 Skin: no rash Dx/Plan (1) Sepsis Code(s): A41.9 - SEPSIS, UNSPECIFIED ORGANISM Status: Acute (2) Colon cancer metastasized to liver Code(s): C18.9 - MALIGNANT NEOPLASM OF COLON, UNSPECIFIED; C78.7 - SECONDARY MALIG NEOPLASM OF LIVER AND INTRAHEPATIC BILE DUCT Status: Chronic (3) Macrocytic anemia Code(s): D53.9 - NUTRITIONAL ANEMIA, UNSPECIFIED Status: Chronic (4) Severe malnutrition Code(s): E43 - UNSPECIFIED SEVERE PROTEIN-CALORIE MALNUTRITION Status: Chronic - Plan plan discussed w/ family, respiratory therapy, incentive spirometry, DVT proph w /SCDs no clear source of infectoion.on empiric ABx -: follow final Cx results.CXR show no PNA.UA clean -: supportive care -: am labs -: HD stable.cont home meds including megace.IVF * . Review of Systems - Review of Systems Constitutional: fever, chills, weakness, malaise Respiratory: Dry Cardiovascular: negative: chest pain, palpitations, orthopnea, paroxysmal nocturnal dyspnea, edema, light headedness, other Gastrointestinal: Constipation. negative: Nausea, Vomiting, Abdominal Pain, Diarrhea, Melena, Hematochezia, Other Musculoskeletal: Back Pain - Medications/Allergies Allergies/Adverse Reactions: Allergies Allergy/AdvReac Type Severity Reaction Status Date / Time No Known Allergies Allergy Verified 11/18/18 10:52 Medications: Current Medications Acetaminophen (Tylenol) 650 mg PO Q4H PRN PRN Reason: Headache/Fever/Mild Pain (1-3) Hydrocodone Bitart/Acetaminophen ([place] 10/325) 1 tab PO QID [facility] Last Admin: 12/21/18 14:38 Dose: Not Given Hydrocodone Bitart/Acetaminophen ([place] 10/325) 1 tab PO QIDPRN PRN PRN Reason: Moderate to Severe Pain (6-10) Alprazolam (Xanax) 0.25 mg PO HSPRN PRN PRN Reason: Anxiety Docusate Sodium (Colace) 200 mg PO BID [facility] Last Admin: 12/21/18 08:46 Dose: 200 mg Enoxaparin Sodium (Lovenox) 40 mg SC 0900 [facility] Last Admin: 12/21/18 08:51 Dose: 40 mg Fentanyl (Duragesic) 50 mcg TD Q3D [facility] Piperacillin Sod/Tazobactam (Sod 3.375 gm/ Sodium Chloride) 100 mls @ 200 mls/ hr IVPB Q6HR [facility] Last Admin: 12/21/18 11:35 Dose: 100 mls Vancomycin HCl 1 gm/ Device 200 mls @ 200 mls/hr IVPB 1200,2359 [facility] Last Admin: 12/21/18 12:14 Dose: 200 mls Sodium Chloride (Normal Saline 0.9%) 1,000 mls @ 75 mls/hr IV .[id number] [facility] Last Admin: 12/21/18 02:31 Dose: 1,000 mls Megestrol Acetate (Megace) 400 mg PO BID [facility] Last Admin: 12/21/18 08:50 Dose: 400 mg Ondansetron HCl (Zofran) 4 mg IVP Q6H PRN PRN Reason: Nausea/Vomiting Last Admin: 12/21/18 09:34 Dose: 4 mg Senna (Senokot) 3 tab PO BID [facility]
[2018-12-21] MEDS ORDERED: Morphine ER 30 MG TAB PO SCH (18:00)
[2018-12-21] MEDS ORDERED: Lorazepam 0.5 MG TAB PO PRN (18:12)
[2018-12-21] MEDS ORDERED: Lorazepam 0.5 MG TAB PO SCH (21:00)
[2018-12-21] MEDS: Senokot 8.6 MG TAB PO SCH (21:24)
--- NOTE | 2018-12-21 21:39 | CON ---
DATE OF CONSULTATION: REASON FOR CONSULT: Rectal cancer. HISTORY OF PRESENT ILLNESS: Mr. Wilson is a pleasant 58-year-old gentleman with metastatic rectal adenocarcinoma and ascending colon adenocarcinoma with partial obstruction. He has recently completed chemotherapy and radiation. In early November, he has struggled with severe pain since diagnosis. He has been on a fentanyl patch for several months at 50 mcg. Recently, his dose was increased to 100 mcg every 3 days. Shortly after increase in medication, he began having uncontrollable shaking. He denies any fever, chills, or night sweats. He was seen in the emergency room 2 days ago and a sepsis workup was done. There was no growth noted on any cultures. He left AMA, but once home he progressively worsened and presented again for further evaluation. He was placed on broad-spectrum antibiotics and admitted for further treatment. Since admission, he has continued to have rigors. His fentanyl has been reduced back to his usual 50 mcg transdermal. His pain is mostly controlled at this time. He has a history of urinary retention; however, on this admission, he feels he has been emptying his bladder fully. No shortness of breath, chest pain, abdominal discomfort. No diarrhea. He does have chronic constipation, but had a bowel movement this morning. PAST MEDICAL HISTORY: 1. T4N1M1 rectal adenocarcinoma. 2. Simultaneous ascending colon adenocarcinoma with partial obstruction. 3. Liver mass. 4. Coronary artery disease. 5. High cholesterol. PAST SURGICAL HISTORY: 1. Cardiac stents. 2. Tonsillectomy. ALLERGIES: NO KNOWN DRUG ALLERGIES. HOME MEDICATIONS: 1. Aspirin 81 mg daily. 2. Duragesic patch 100 mcg q.3 days. 3. Flomax daily. 4. Hydrocodone 10/325 p.r.n. 5. Megace daily. 6. MiraLAX daily. 7. Simvastatin daily. 8. Senna b.i.d. 9. Stool softener daily. FAMILY HISTORY: Brain and stomach cancer. SOCIAL HISTORY: , has 4 children. Lives with the spouse. A 41-pack year history of smoking. No alcohol, illicit drug use. REVIEW OF SYSTEMS: CONSTITUTIONAL: No fever, chills, night sweats. EYES: No blurred or double vision. ENT: No pain, hoarseness, sore throat, dysphagia. CV: No chest pain, palpitations, syncope. RESPIRATORY: No shortness of breath, dyspnea on exertion or cough. GI: Positive for nausea, constipation. No diarrhea, vomiting, or bleeding. : No dysuria, hematuria. SKIN: No rash or pruritus. HEMATOLOGICAL: No bruising, bleeding or clotting. NEUROLOGIC: Positive for involuntary movements. No headache, numbness, tingling, or seizures. PSYCH: No anxiety or depression. PHYSICAL EXAMINATION: VITAL SIGNS: Temperature 97.9, pulse 73, respiratory rate 20, BP is 131/77. He is 97% on room air. GENERAL: Well-developed, thin male, in no acute distress. HEENT: Normocephalic, atraumatic. Pupils are equal and reactive to light. NECK: Supple. CV: Regular rate and rhythm. LUNGS: Clear. ABDOMEN: Soft, nontender. Bowel sounds are positive. EXTREMITIES: No clubbing, cyanosis, or edema. SKIN: No rash. HEMATOLOGICAL: No petechiae or purpura. NEUROLOGIC: He has involuntary tremors in both upper and lower extremities. No clonus. PSYCHIATRIC: The patient is alert, oriented, appropriate. PERTINENT LABS AND X-RAYS: Current WBCs 9.2, hemoglobin 11.3, hematocrit 33.8, platelet count is 413,000, 75% neutrophils, 10% lymphocytes. Sodium 135, potassium 4.2, chloride 106, CO2 is 19, BUN is 11, creatinine 0.68, lactic acid 1.4, calcium 9.4, bilirubin 0.4, AST is 23, ALT is 10, alkaline phosphatase 227. Serum total protein 7.2, albumin 3.8, globulin 3.4. ASSESSMENT: 1. Metastatic rectal and ascending colon adenocarcinoma, status post chemo radiation. 2. New onset rigors, questionable serotonin syndrome. DISCUSSION: The patient's symptoms started shortly after new dosing of his fentanyl patch 200 mcg. This is been reduced back to 50 mcg. While his pain is controlled, he continues to have involuntary movements. The case was discussed with Dr. Abraham and Dr. Flanagan who is his palliative care doctor. Suggestion to start dexamethasone daily, to continue Ativan b.i.d. and to start MS Contin. We will remove the fentanyl patch once the MS Contin has been started. Hopefully his symptoms will subside in the next few days. He needs to continue his bowel regimen. Thank you for the consult. We will follow him closely. Job ID: [id number]
[2018-12-21] MEDS: Morphine 2 MG/ML SYRINGE SLOW IVP PRN (22:31)
[2018-12-22] MEDS: Vancomycin HCl 1 GM in Premix Bag 1 BAG IVPB SCH ×2 (00:06→12:28)
[2018-12-22] MEDS: Sodium Chloride 0.9% 1,000 ML IV SCH ×2 (06:00→12:54)
[2018-12-22] MEDS: Megestrol Acetate 800 MG/20 ML UDCUP PO SCH ×2 (08:23→21:10)
[2018-12-22] MEDS: Dexamethasone 4 MG TAB PO SCH (08:24)
[2018-12-22] MEDS: Senokot 8.6 MG TAB PO SCH ×2 (08:24→21:11)
[2018-12-22] MEDS: Docusate 100 MG CAP PO SCH ×2 (08:24→21:11)
[2018-12-22] MEDS: Piperacillin/Tazobactam 3.375 GM in Sodium Chloride 0.9% 100 ML IVPB SCH ×4 (08:25→18:04)
[2018-12-22] MEDS: HYDROcodone/Acetaminophen 10/325 mg Tablet PO SCH ×2 (08:25→12:52)
[2018-12-22] MEDS: Enoxaparin Sodium 40 MG/0.4 ML SYRINGE SC SCH (08:25)
[2018-12-22] MEDS: Morphine 2 MG/ML SYRINGE SLOW IVP PRN ×2 (10:31→12:51)
[2018-12-22] MEDS: Vancomycin HCl 1.25 GM in Sodium Chloride 0.9% 250 ML 250 ML IVPB SCH (13:17)
--- NOTE | 2018-12-22 14:41 | PDOC.PN ---
- Subjective Encounter Start Date: 12/22/18 Encounter Start Time: 14:40 Subjective: feels only a little better.still headache,nausea & light sensitivity -: family at bedside - Objective Resuscitation Status - Order Detail: 12/21/18 00:42 Resuscitation Status Routine Resuscitation Status: FULL: Full Resuscitation MAR Reviewed: Yes Vital Signs & Weight: Vital Signs (12 hours) Temp Pulse Resp BP BP Pulse Ox 12/22/18 12:00 97.9 F 63 20 108/56 L 95 12/22/18 08:00 97.8 F 86 20 104/56 L 98 Weight Admit Weight 129 lb Weight 129 lb I&O: 12/21/18 12/22/18 12/23/18 06:59 06:59 06:59 Intake Total 800 1550 Output Total 600 Balance 200 1550 Result Diagrams: 12/21/18 04:47 12/21/18 04:47 Additional Labs: Microbiology 12/20/18 03:45 Urine voided Urine Culture - Final NO GROWTH AT 36 HOURS 12/20/18 03:45 Nasal swab Influenza Types A,B Direct EIA - Final 12/20/18 03:46 Venous blood - Left Hand Blood Culture - Preliminary Specimen has been received and culture in progress. No Growth to date. 12/20/18 01:27 Venous blood - Left Arm Blood Culture - Preliminary Specimen has been received and culture in progress. No Growth to date. Phys Exam - Physical Examination Constitutional: NAD lying in dark and quiet room w cloth on head/eyes HEENT: PERRLA, moist MMs, sclera anicteric, oral pharynx no lesions Neck: no nodes, no JVD, supple, full ROM Respiratory: no wheezing, no rales, no rhonchi, clear to auscultation bilateral Cardiovascular: RRR, no significant murmur Gastrointestinal: soft, non-tender, no distention, positive bowel sounds Musculoskeletal: no edema, pulses present Neurological: non-focal, normal sensation, moves all 4 limbs Psychiatric: normal affect, A&O x 3 Skin: no rash Dx/Plan (1) Sepsis Code(s): A41.9 - SEPSIS, UNSPECIFIED ORGANISM Status: Acute Comment: suspected.Empiric ABx. Cx negative so far X2 (2) Colon cancer metastasized to liver Code(s): C18.9 - MALIGNANT NEOPLASM OF COLON, UNSPECIFIED; C78.7 - SECONDARY MALIG NEOPLASM OF LIVER AND INTRAHEPATIC BILE DUCT Status: Chronic (3) Macrocytic anemia Code(s): D53.9 - NUTRITIONAL ANEMIA, UNSPECIFIED Status: Chronic (4) Severe malnutrition Code(s): E43 - UNSPECIFIED SEVERE PROTEIN-CALORIE MALNUTRITION Status: Chronic - Plan plan discussed w/ family, out of bed/ambulate, DVT proph w/SCDs ? Serotonin syndrome and fentanyl stopped.Symptoms better -: consult as per pt request. -: cont MS contin.Started on dexamethasone -: Hd stable. * . Review of Systems - Review of Systems Constitutional: weakness, malaise. negative: fever, chills, sweats, other Respiratory: negative: Cough, Dry, Shortness of Breath, Hemoptysis, SOB with Excertion, Pleuritic Pain, Sputum, Wheezing Gastrointestinal: Nausea. negative: Vomiting, Abdominal Pain, Diarrhea, Constipation, Melena, Hematochezia, Other Genitourinary: negative: Dysuria, Frequency, Incontinence, Hematuria, Retention , Other Musculoskeletal: negative: Neck Pain, Shoulder Pain, Arm Pain, Back Pain, Hand Pain, Leg Pain, Foot Pain, Other Neurological: negative: Weakness, Numbness, Incoordination, Change in Speech, Confusion, Seizures, Other - Medications/Allergies Allergies/Adverse Reactions: Allergies Allergy/AdvReac Type Severity Reaction Status Date / Time No Known Allergies Allergy Verified 11/18/18 10:52 Medications: Current Medications Acetaminophen (Tylenol) 650 mg PO Q4H PRN PRN Reason: Headache/Fever/Mild Pain (1-3) Hydrocodone Bitart/Acetaminophen ([place] 10/325) 1 tab PO QID [facility] Last Admin: 12/22/18 12:52 Dose: 1 tab Hydrocodone Bitart/Acetaminophen ([place] 10/325) 1 tab PO QIDPRN PRN PRN Reason: Moderate to Severe Pain (6-10) Last Admin: 12/21/18 15:26 Dose: 1 tab Alprazolam (Xanax) 0.25 mg PO HSPRN PRN PRN Reason: Anxiety Last Admin: 12/21/18 21:24 Dose: 0.25 mg Dexamethasone (Decadron) 4 mg PO QAM-WM [facility] Last Admin: 12/22/18 08:24 Dose: 4 mg Docusate Sodium (Colace) 200 mg PO BID [facility] Last Admin: 12/22/18 08:24 Dose: 200 mg Enoxaparin Sodium (Lovenox) 40 mg SC 0900 [facility] Last Admin: 12/22/18 08:25 Dose: 40 mg Piperacillin Sod/Tazobactam (Sod 3.375 gm/ Sodium Chloride) 100 mls @ 200 mls/ hr IVPB Q6HR [facility] Last Admin: 12/22/18 12:05 Dose: 100 mls Sodium Chloride (Normal Saline 0.9%) 1,000 mls @ 75 mls/hr IV .[id number] [facility] Last Admin: 12/22/18 12:54 Dose: 1,000 mls Vancomycin HCl 1.25 gm/ Sodium (Chloride) 250 mls @ 166.667 mls/hr IVPB 0100, 1300 [facility] Last Admin: 12/22/18 13:17 Dose: 250 mls Lorazepam (Ativan) 1 mg PO Q4H PRN PRN Reason: Anxiety Last Admin: 12/22/18 00:08 Dose: 1 mg Megestrol Acetate (Megace) 400 mg PO BID [facility] Last Admin: 12/22/18 08:23 Dose: 400 mg Morphine Sulfate (Morphine) 2 mg SLOW IVP Q2H PRN PRN Reason: Severe Pain (7-10) Last Admin: 12/22/18 12:51 Dose: 2 mg Ondansetron HCl (Zofran) 4 mg IVP Q6H PRN PRN Reason: Nausea/Vomiting Last Admin: 12/21/18 09:34 Dose: 4 mg Senna (Senokot) 3 tab PO BID [facility] Last Admin: 12/22/18 08:24 Dose: 3 tab
[2018-12-22] MEDS ORDERED: Bisacodyl 5 MG TAB PO PRN (16:49)
[2018-12-22] MEDS ORDERED: Hydrocortisone/Pramoxine (Proctofoam HC) 10 GM BOX TOP PRN (17:18)
[2018-12-22] MEDS: Morphine IR Tab 15 MG TAB PO SCH (18:05)
[2018-12-22] MEDS: Famotidine 20 MG TAB PO SCH (21:11)
[2018-12-22] MEDS: Morphine IR Tab 15 MG TAB PO PRN (21:25)
[2018-12-23] MEDS: Morphine IR Tab 15 MG TAB PO SCH ×5 (00:25→23:01)
[2018-12-23] MEDS: Piperacillin/Tazobactam 3.375 GM in Sodium Chloride 0.9% 100 ML IVPB SCH ×3 (00:25→11:33)
[2018-12-23] MEDS: Vancomycin HCl 1.25 GM in Sodium Chloride 0.9% 250 ML 250 ML IVPB SCH ×2 (01:11→13:41)
[2018-12-23] MEDS: Morphine IR Tab 15 MG TAB PO PRN ×2 (03:03→16:48)
[2018-12-23 05:13] LABS: #Lymphocytes 0.7 thou/uL (1.20-3.40); #Monocytes 1.3 thou/uL (0.11-0.59); #Neutrophils 9.5 thou/uL (1.40-6.50); %Basophils 0.4 % (0.0-1.0); %Eosinophils 0.1 % (0.0-10.0); %Lymphocytes 6.3 % (21.0-51.0); %Monocytes 11.2 % (0.0-10.0); Mean Corpuscular HGB CONC 33.5 g/dL (32.0-36.0); Mean Corpuscular Hemoglobin 33.3 pg (27.0-31.0); Mean Corpuscular Volume 99.3 fL (78.0-98.0); Mean Platelet Volume 7.5 fL (7.4-10.4); Platelet Count 438 thou/uL (130-400); RBC Distribution Width 16.3 % (11.5-14.5); White Blood Cell (WBC) Count 11.6 thou/uL (4.8-10.8)
[2018-12-23] MEDS ORDERED: fentaNYL 50 mcg/hour Patch TD SCH (09:00)
[2018-12-23] MEDS: Enoxaparin Sodium 40 MG/0.4 ML SYRINGE SC SCH (09:20)
[2018-12-23] MEDS: Docusate 100 MG CAP PO SCH ×2 (09:20→20:51)
[2018-12-23] MEDS: Megestrol Acetate 800 MG/20 ML UDCUP PO SCH ×2 (09:20→20:51)
[2018-12-23] MEDS: Dexamethasone 4 MG TAB PO SCH (09:20)
[2018-12-23] MEDS: Famotidine 20 MG TAB PO SCH ×2 (09:20→20:50)
[2018-12-23] MEDS: Senokot 8.6 MG TAB PO SCH ×2 (09:20→20:51)
--- NOTE | 2018-12-23 10:17 | PDOC.EVN ---
Event Note - Event Note Event Note: Palliative Physician consult Follow-up Pt improved in pain control and decreased photophobia denying headache without nausea but some epigastric pain. He reports no BM yet although he feels like he needs to have one. Was using daily miralax in addition to senna at home. he denies tremors but still c/o of night sweats that he says has been present for 3 months. He also c/o no appetite and no sleep last night. Did sleep more the night before when given xanax but slept so hard he had episode of urinary incontinence. Still has difficulty voiding and has increased rectal pain with attempts at BM or urination when he strains. Also c/o poor appetite with bad taste in his mouth. VSS GEN: alert and NAD sitting up with eyes open in darkened room HEENT: PERRL; EOMI; OR edentulous without lesion or exudate and moist LUNGS: clear CV: RRR ABD: NABS; soft but tenderness to deep palpation over epigastric area and RUQ with percussion of distended liver edge to 2-3 cm below. EXT: no C, C or E NEURO: CN's grossly intact; Ox3; no clonus; speech clear and fluid WBC up slightly; normal GFR; Alb=3.8 Assessment: 1. Stage IV rectal carcinoma 2. Palliative Care Consultation for management of complicated symptoms 3. Pain due to cancer with adequate control over night. Anticipate patient will benefit from long-acting opioid such as MS Contin; however, as patient still has some uncertain amount of fentanyl on board, it is difficult ot know pain needs exactly. Approximately 75% of patch should be gone at this point. Patient has used hydrocodone 20 mg in last 24 hours along with 4mg of IV MS and 75mg of oral MSIR for total opioid usage of 107 oral morphine equivalents. In all likelihood pt will need MS Contin 45 mg BID with MSIR 15 mg as break through ; however, it would be ideal to avoid the long -acting until the fentanyl is more predictably out of his system. If consistent with other care goals I would recommend we initiate the MS Contin in the AM after observing usage of opioids today. 4 Acute rectal pain with straining most likely due to fissure-start topical lidocaine cream BID --warm sitz baths if possible --STOP proctofoam as it aggravated sx's --attempt to soften BM's 5. Constipation-still passing gas with good BM's; pt at risk for lower obstruction at some point, so would be good to have surgery address potential prophylactic interventions while patient is still able to consider options- no BM since admit --Continue senna 3 tabs BID --Continue Colace BID --Miralax one capful daily --Duclolax pill if no BM this AM 6 Rigors resolved; assumed to be due to neurotoxicity but possible aggravating infection. 7. Urinary hesitancy-consider evaluation of post-void residual; sx's complicated by a number of factors-primary complication preventing good sleep 8. Insomnia-as above but can give lower dose of xanax to see if it will accomplish goal of rest without complication of excess sedation. If continues to be a problem and no success with appetite could alternatively consider low dose remeron. 9. Anorexia with poor taste-no evidence of OP infection; address constipation; bad taste may be related to meds.
[2018-12-23] MEDS: Nicotine 7 MG PATCH TD SCH (13:06)
[2018-12-23] MEDS ORDERED: SUMAtriptan Succinate 50 MG TAB PO SCH (13:45)
--- NOTE | 2018-12-23 14:12 | PQF ---
DATE: 12-23-18 ATTN: DR. LYNETTE BOOGIE Please exercise your independent, professional judgment in responding to the clarification form. Clinical indicators are provided on the bottom of this form for your review Diagnosis: ACUTE SEPSIS Present on Admission (POA): [ ] Yes [ ] No [ X ] Unable to determine Coding guidelines require hospitals to identify whether a diagnosis was present on admission (POA) or not. To accurately assign the appropriate POA indicator, this information must be clearly documented within the medical record. CLINICAL INDICATORS - SIGNS / SYMPTOMS / LABS ER: UNCONTROLLING SHAKING, PT WAS ADMITTED ON 12-20 FOR CONCERN OF SEPSIS AND LEFT AMA ER DX: CHILLS, METASTATIC COLORECTAL CA WBC: 12-20-18: 11.8, 12-21-18: 9.2 12-23-18: 11.6 BP: 12-21-18: 84/52 PULSE: ER: 117 H&P: METASTATIC STAGE IV, SEEMS TO BE COMPLICATED WITH INFECTION PN DR. BOOGIE 12-21-18: ACUTE SEPSIS RISK FACTORS: H&P: METASTATIC STAGE IV, SEEMS TO BE COMPLICATED WITH INFECTION, SUBJECTIVE FEVER, CHILLS, GENERALIZED WEAKNESS TREATMENT: ER: VANCOMYCIN IV, ZOSYN IV, IVF (This form is maintained as a part of the permanent medical record) 2014 [employer] All Rights Reserved DIANE [email or web address] Office: [phone] ISIDRO
[2018-12-23] MEDS: Sodium Chloride 0.9% 1,000 ML IV SCH ×2 (14:49→21:35)
--- NOTE | 2018-12-23 15:08 | PDOC.PN ---
- Subjective Encounter Start Date: 12/23/18 Encounter Start Time: 15:05 Subjective: c/o extreme light & sound sensitivity - Objective Resuscitation Status - Order Detail: 12/21/18 00:42 Resuscitation Status Routine Resuscitation Status: FULL: Full Resuscitation MAR Reviewed: Yes Vital Signs & Weight: Vital Signs (12 hours) Temp Pulse Resp BP BP Pulse Ox 12/23/18 08:00 98.3 F 64 16 120/85 96 12/23/18 04:00 98.4 F 72 16 126/71 96 Weight Admit Weight 129 lb Weight 129 lb I&O: 12/22/18 12/23/18 12/24/18 06:59 06:59 06:59 Intake Total 1550 3757.5 Output Total 425 Balance 1550 3332.5 Result Diagrams: 12/23/18 04:13 12/21/18 04:47 Additional Labs: Microbiology 12/20/18 03:45 Urine voided Urine Culture - Final NO GROWTH AT 36 HOURS 12/20/18 03:45 Nasal swab Influenza Types A,B Direct EIA - Final 12/20/18 23:18 Venous blood - Right Hand Blood Culture - Preliminary Specimen has been received and culture in progress. No Growth to date. 12/20/18 22:25 Venous blood - Left Hand Blood Culture - Preliminary Specimen has been received and culture in progress. No Growth to date. 12/20/18 03:46 Venous blood - Left Hand Blood Culture - Preliminary NO GROWTH AT 48 HOURS 12/20/18 01:27 Venous blood - Left Arm Blood Culture - Preliminary NO GROWTH AT 48 HOURS Phys Exam - Physical Examination Constitutional: NAD HEENT: PERRLA, moist MMs, sclera anicteric, oral pharynx no lesions Neck: no nodes, no JVD, supple, full ROM Respiratory: no wheezing, no rales, no rhonchi, clear to auscultation bilateral Cardiovascular: RRR, no significant murmur Gastrointestinal: soft, non-tender, no distention, positive bowel sounds Musculoskeletal: no edema, pulses present Neurological: non-focal, normal sensation, moves all 4 limbs Psychiatric: normal affect, A&O x 3 Skin: no rash Dx/Plan (1) Sepsis Code(s): A41.9 - SEPSIS, UNSPECIFIED ORGANISM Status: Acute Comment: ruled out (2) Colon cancer metastasized to liver Code(s): C18.9 - MALIGNANT NEOPLASM OF COLON, UNSPECIFIED; C78.7 - SECONDARY MALIG NEOPLASM OF LIVER AND INTRAHEPATIC BILE DUCT Status: Chronic (3) Macrocytic anemia Code(s): D53.9 - NUTRITIONAL ANEMIA, UNSPECIFIED Status: Chronic (4) Severe malnutrition Code(s): E43 - UNSPECIFIED SEVERE PROTEIN-CALORIE MALNUTRITION Status: Chronic - Plan DVT proph w/SCDs DC ABx as all Cx negative. -: will try Sumatriptan .? migraine Vs medication reaction -: supportive care.Pain meds per Dr. Flanagan -: ensure TID -: DC when Ok w Oncology.Pt needs hospice but not ready to discuss * . Review of Systems - Review of Systems Constitutional: weakness, malaise Eyes: negative: Pain, Vision Change, Conjunctivae Inflammation, Eyelid Inflammation, Redness, Other ENT: negative: Ear Pain, Ear Discharge, Nose Pain, Nose Discharge, Nose Congestion, Mouth Pain, Mouth Swelling, Throat Pain, Throat Swelling, Other Respiratory: negative: Cough, Dry, Shortness of Breath, Hemoptysis, SOB with Excertion, Pleuritic Pain, Sputum, Wheezing Cardiovascular: negative: chest pain, palpitations, orthopnea, paroxysmal nocturnal dyspnea, edema, light headedness, other Gastrointestinal: negative: Nausea, Vomiting, Abdominal Pain, Diarrhea, Constipation, Melena, Hematochezia, Other Genitourinary: negative: Dysuria, Frequency, Incontinence, Hematuria, Retention , Other Musculoskeletal: negative: Neck Pain, Shoulder Pain, Arm Pain, Back Pain, Hand Pain, Leg Pain, Foot Pain, Other Neurological: Other. negative: Weakness, Numbness, Incoordination, Change in Speech, Confusion, Seizures - Medications/Allergies Allergies/Adverse Reactions: Allergies Allergy/AdvReac Type Severity Reaction Status Date / Time No Known Allergies Allergy Verified 11/18/18 10:52 Medications: Current Medications Acetaminophen (Tylenol) 650 mg PO Q4H PRN PRN Reason: Headache/Fever/Mild Pain (1-3) Bisacodyl (Dulcolax) 5 mg PO DAILYPRN PRN PRN Reason: Constipation Dexamethasone (Decadron) 4 mg PO QAM-WM [facility] Last Admin: 12/23/18 09:20 Dose: 4 mg Docusate Sodium (Colace) 200 mg PO BID [facility] Last Admin: 12/23/18 09:20 Dose: 200 mg Enoxaparin Sodium (Lovenox) 40 mg SC 0900 [facility] Last Admin: 12/23/18 09:20 Dose: 40 mg Famotidine (Pepcid) 20 mg PO BID [facility] Last Admin: 12/23/18 09:20 Dose: 20 mg Sodium Chloride (Normal Saline 0.9%) 1,000 mls @ 75 mls/hr IV .[id number] [facility] Last Admin: 12/23/18 14:49 Dose: 1,000 mls Lidocaine HCl (Lmx 4 Plus) 0 gm TOP BID [facility] Megestrol Acetate (Megace) 400 mg PO BID [facility] Last Admin: 12/23/18 09:20 Dose: 400 mg Morphine Sulfate (Morphine Ir Tab) 15 mg PO Q6HR [facility] Last Admin: 12/23/18 11:33 Dose: 15 mg Morphine Sulfate (Morphine Ir Tab) 15 mg PO Q6H PRN PRN Reason: Pain Last Admin: 12/23/18 03:03 Dose: 15 mg Nicotine (Nicoderm Patch) 7 mg TD Q24HR [facility] Last Admin: 12/23/18 13:06 Dose: 7 mg Polyethylene Glycol (Miralax) 17 gm PO DAILY [facility] Senna (Senokot) 3 tab PO BID [facility] Last Admin: 12/23/18 09:20 Dose: 3 tab Sodium Chloride (Flush - Normal Saline) 10 ml IVF Q12HR [facility] Sodium Chloride (Flush - Normal Saline) 10 ml IVF PRN PRN PRN Reason: Saline Flush Sumatriptan Succinate (Imitrex) 50 mg PO NOW [facility] Stop: 12/23/18 15:45 Last Admin: 12/23/18 14:49 Dose: 50 mg
[2018-12-23 20:51] VITALS: TEMP 97.9
[2018-12-23] MEDS: Lidocaine 4% Cream 5 GM TUBE w/ Tegaderm TOP SCH (20:59)
[2018-12-23] MEDS ORDERED: ALPRAZolam 0.25 MG TAB PO PRN (21:28)
[2018-12-24] MEDS: Morphine IR Tab 15 MG TAB PO PRN (03:06)
[2018-12-24] MEDS ORDERED: Morphine IR Tab 15 MG TAB PO PRN (04:59)
[2018-12-24] MEDS: Morphine ER 30 MG TAB PO SCH ×2 (06:14→13:47)
[2018-12-24 08:21] VITALS: BP 130/84
[2018-12-24] MEDS: Docusate 100 MG CAP PO SCH (08:54)
[2018-12-24] MEDS: Senokot 8.6 MG TAB PO SCH (08:54)
[2018-12-24] MEDS: Dexamethasone 4 MG TAB PO SCH (08:54)
[2018-12-24] MEDS: Megestrol Acetate 800 MG/20 ML UDCUP PO SCH (08:55)
[2018-12-24] MEDS: Enoxaparin Sodium 40 MG/0.4 ML SYRINGE SC SCH ×2 (08:55→08:59)
[2018-12-24] MEDS: Nicotine 7 MG PATCH TD SCH (08:56)
[2018-12-24] MEDS: Famotidine 20 MG TAB PO SCH (08:56)
[2018-12-24] MEDS: Lidocaine 4% Cream 5 GM TUBE w/ Tegaderm TOP SCH (08:57)
[2018-12-24] MEDS ORDERED: Polyethylene Glycol 3350 17 GM Packet PO SCH (09:00)
--- NOTE | 2018-12-24 15:39 | PRG ---
DATE OF SERVICE: 12/24/2018 SUBJECTIVE: The patient describes marked improvement in pain control, happy that he slept last night, have had a bowel movement yesterday. Denies any nausea. Denies any abdominal pain. Does have rectal pain not greater than 3, which is tolerable. He reports marked improvement in urination. He has slight hesitation, but is able to go to the toilet. He is excited because the hospitalist has already discharged him. OBJECTIVE: VITAL SIGNS: Stable. GENERAL: He is a thin, cachetic appearing white male with good color. HEENT: Extraocular muscles intact. Pupils are equal, round, and reactive to light. Oropharynx is moist, but edentulous. LUNGS: Clear throughout without wheezes, rales, or rhonchi. HEART: Regular rate and rhythm without murmur. ABDOMEN: Normal bowel sounds. Soft. Mild tenderness in the right midabdomen. Palpable liver edge about 3 cm below the right costophrenic margin with dullness to percussion overlying the liver. EXTREMITIES: Without clubbing, cyanosis, or edema. NEUROLOGIC: Alert and oriented. Cranial nerves are grossly intact. SKIN: Good turgor. ASSESSMENT: 1. Stage 4 rectal carcinoma. 2. Followup Palliative Care consultation for symptom management per Dr. Abraham's request. 3. Cancer pain is being controlled with the patient's current regimen of morphine. Had converted from fentanyl patch to MS Contin, given first dose this morning after 2 days of management with MSIR and previously hydrocodone. It has been over 51 hours since the patient's patch was discontinued. He reports resolution of all shaking. No discomfort and no nausea with good pain control. Proper calculation is that the patient would need approximately 100 mg of oral morphine equivalent in the 24-hour period based upon his patch and his usage for the first 2 days, he was in the hospital. Based upon that, the patient was ordered long acting MS Contin 30 mg p.o. q.8 hours. Explained to the patient that I would prefer to observe him until he reaches a steady state. However, as he has already discharged and his great desire is to go home, I gave him galo warning without any evidence of sedation hold medication and he was given the number for the physicians on-call, who can contact me if he have any questions. If there is any significant respiratory depression, he is to go to the emergency room. His acknowledges this understanding. 4. Acute rectal pain is only immediately after having a bowel movement and that has improved. I think his fissure has probably improving. 5. Resolution of tremor, assumed to be neurotoxicity, resolved with change in opioid. 6. Constipation. Resolved on current regimen of senna 3 tablets p.o. b.i.d., Colace 2 tablets p.o. b.i.d., and MiraLAX 1 capsule daily. The patient should also take dulcolax 5 mg if he has no bowel movement in 3 days. 7. Insomnia. Resolved with the Xanax of 0.125 at bedtime p.r.n. We recommend continuing. Discussed the patient's code status. The patient clearly stated that he understood that he had a terminal disease and he desires to continue with chemotherapy with the hope of prolongation of life; however, should he arrest and his stop. He does not want any attemptive resuscitation, but wants to be allowed to go peacefully. He stated that this in the presence of his and he would like to complete the paperwork for the [id number] DNR to take with him. At this time, he understands that this does not preclude any other therapies short of a resuscitative efforts should he arrest. Case Management or Palliative Care team will be consulted to complete the [id number] DNR. The patient is to follow up in Thursday and the Palliative Care consultation with myself. Followup wit Dr. Abraham per her request. Job ID: [id number]
== END 2018-12-24 14:30 | disposition home or self-care (01) | DRG 374 ==
LOC: ERS 22:24 → ONC 22:50
PROVIDERS: ADMIT Hospitalist; ATTEND Hospitalist
DX: C19 Malignant neoplasm of rectosigmoid junction (principal); E43 Unspecified severe protein-calorie malnutrition; C18.2 Malignant neoplasm of ascending colon; Z68.1 Body mass index [BMI] 19.9 or less, adult; C78.7 Secondary malignant neoplasm of liver and intrahepatic bile duct; I25.10 Atherosclerotic heart disease of native coronary artery without angina pectoris; D53.9 Nutritional anemia, unspecified; K59.00 Constipation, unspecified; R39.11 Hesitancy of micturition; G47.00 Insomnia, unspecified; G89.3 Neoplasm related pain (acute) (chronic); Z95.5 Presence of coronary angioplasty implant and graft
CPT/HCPCS: 36415; 71045; 71275; 80048; 80053; 80202; 81003; 83605; 83880; 84484; 85025; 85379; 87040; 87086; 87804; 93005; 96361; 96365; 96367; 96375; J1642; J1650; J2060; J2270; J2405; J2543; J3370; J7050; J8540